=== PATIENT | female | born 1995 | race African-American/Black ===

== ENCOUNTER 2016-10-04 04:46 | Emergency (ER) | payer OTHER ==
[~2016-10-04] VITALS: Ht 162.6 cm; Wt 63.6 kg
[2016-10-04] MEDS ORDERED: MORPHINE SULFATE 4 MG/ML CPJ (NOT FOR IM USE) IV STA (06:56)
[2016-10-04] MEDS ORDERED: ONDANSETRON HCL 4MG/2ML VIAL IV STA (06:56)
[2016-10-04] MEDS ORDERED: SODIUM CHLORIDE 0.9% 1,000 ML IV ONE (06:56)
[2016-10-04 07:19] LABS: CLARITY URINE TURBID (CLEAR); COLOR URINE YELLOW (YELLOW); GLUCOSE URINE NEGATIVE (NEGATIVE); KETONES URINE TRACE (NEGATIVE); LEUKOCYTE ESTERASE URINE 2+ (NEGATIVE); NITRITE URINE NEGATIVE (NEGATIVE); OCCULT BLOOD URINE 3+ (NEGATIVE); PH URINE >=9.0 (4.5-8.0); PROTEIN URINE 1+ (NEGATIVE); SPECIFIC GRAVITY URINE 1.021 (1.005-1.030)
[2016-10-04 07:43] LABS: BASOPHILS % 0.3 % (0.0-2.0); EOSINOPHILS % 0.1 % (0.0-5.0); HEMATOCRIT. 29.6 % (36.0-48.0); HEMOGLOBIN. 9.9 g/dL (12.0-16.0); LYMPHOCYTES % 7.8 % (20.0-50.0); MEAN CORPUSCULAR HEMOGLOBIN 27.4 pg (28.0-32.0); MEAN CORPUSCULAR VOLUME 81.7 fL (81.0-99.0); MEAN PLATELET VOLUME 6.8 fl (7.4-10.4); MONOCYTES % 5.5 % (2.0-8.0); NEUTROPHILS % 86.3 % (40.0-76.0); PLATELET 360 x1000/uL (130-400); RED BLOOD CELL COUNT 3.63 mill/uL (4.2-5.4); RED CELL DISTRIBUTION WIDTH 14.7 % (11.6-14.6)
[2016-10-04 07:50] LABS: INR 1.1; PROTHROMBIN TIME 11.5 sec
[2016-10-04 07:59] LABS: CARBON DIOXIDE 31 mEq/L (21-32); CHLORIDE 103 mEq/L (98-107)
[2016-10-04 08:17] LABS: HCG SCREEN NEGATIVE
[2016-10-04] MEDS ORDERED: CEFTRIAXONE 1 G PREMIX 50 ML IV ONE (08:45)
[2016-10-04] MEDS ORDERED: KETOROLAC 30MG/ML VIAL IV ONE (09:00)
[2016-10-04 10:26] VITALS: BP 138/90
== END 2016-10-04 10:28 | disposition home or self-care (01) ==
LOC: ER 05:32
DX: N39.0 Urinary tract infection, site not specified (principal); Z88.8 Allergy status to other drugs, medicaments and biological substances
CPT/HCPCS: 36415; 80053; 81001; 83690; 84703; 85025; 85610; 96361; 96365; 96375; 99285; J0696; J1885; J2270; J2405; J7030